=== PATIENT | female | born 1985 | race Caucasian/White ===

== ENCOUNTER 2020-03-05 10:13 | Emergency (ER) | payer OTHER ==
--- NOTE | 2020-03-05 10:35 | ED Physician Documentation ---
PD HPI UPPER EXT INJURY - Stated complaint Stated Complaint: LT FINGER INJ - Chief complaint Chief Complaint: Trauma Ext - History obtained from History obtained from: Patient - Additonal information Additional information: Right-handed woman was unbridling her horse 2 days ago and her left ring finger got caught and it snapped. She has persistent pain there. No other injuries. No possibility of . Ancillary complains about a weeks worth of underlying vaginal discharge. Initially more yeasty subsequently more like BV. She has had both in the past. Also has a new partner and is a little worried about STDs. She will self swab. Review of Systems Constitutional: reports: Reviewed and negative Eyes: reports: Reviewed and negative Ears: reports: Reviewed and negative Nose: reports: Reviewed and negative Throat: reports: Reviewed and negative PD PAST MEDICAL HISTORY - Present Medications Home Medications: Ambulatory Orders Medication Instructions Recorded Confirmed Hydrocodone/Acetaminophen 1 - 2 tab PO Q6H PRN #15 tablet 03/05/20 [Hydrocodone-Acetamin 5-325 mg] metroNIDAZOLE VAGINAL GEL 1 appful VG BID #10 tube 03/05/20 [Metrogel] metroNIDAZOLE [Flagyl] 500 mg PO BID #14 tablet 03/05/20 - Allergies Allergies/Adverse Reactions: Allergies Allergy/AdvReac Type Severity Reaction Status Date / Time azithromycin Allergy Emesis Verified 03/05/20 10:24 latex Allergy Rash Verified 03/05/20 10:24 lisinopril Allergy Edema Verified 03/05/20 10:24 Penicillins Allergy Unknown Verified 03/05/20 10:24 PD ED PE NORMAL - Vitals Vital signs reviewed: Yes - General General: Alert and oriented X 3, No acute distress - Extremities Extremities: Other (Deformity and swelling to the proximal phalanx and PIP of the left fourth finger with bruising. No distal neurovascular compromise.) - Neuro Neuro: Alert and oriented X 3, Normal speech Results - Vitals Vitals: Vital Signs - 24 hr 03/05/20 10:24 Temperature 36.9 C Heart Rate 95 Respiratory 16 Rate Blood Pressure 165/116 H O2 Saturation 99 Oxygen O2 Source Room air - Labs Labs: Microbiology 03/05/20 11:10 Wet Prep - Final Genital - Vaginal - Rads (name of study) L 4th finger XR Radiology: EMP read contemporaneously (Acute minimally displaced spiral fracture of the fourth proximal phalangeal shaft with soft tissue swelling.) Procedures - Splint (location) L4th finger Splint applied by: Physician Type of splint: Metal foam finger splint (and sara taped to #5) Other: Patient tolerated well, No complications, Neurovascular intact PD MEDICAL DECISION MAKING - ED course ED course: 34-year-old presents with a broken finger. It was splinted in a position of comfort. Advised on follow-up. She also had a complaint of vaginal discharge. Some concern for STDs. Wet mount shows clue cells consistent with bacterial vaginosis. Departure - Departure Disposition: 01 Home, Self Care Clinical Impression: Bacterial vaginosis Fracture of phalanx of left ring finger Qualifiers: Encounter type: initial encounter Fracture type: closed Phalanx: proximal Fracture alignment: nondisplaced Qualified Code(s): S62.645A - Nondisplaced fracture of proximal phalanx of left ring finger, initial encounter for closed fracture Condition: Good Record reviewed to determine appropriate education?: Yes Instructions: ED Fx Finger Closed, ED Vaginosis Bacterial Follow-Up: [facility] [Provider Group] - Within 1 week Prescriptions: metroNIDAZOLE [Flagyl] 500 mg PO BID #14 tablet Hydrocodone/Acetaminophen [Hydrocodone-Acetamin 5-325 mg] 1 - 2 tab PO Q6H PRN #15 tablet PRN Reason: Pain metroNIDAZOLE VAGINAL GEL [Metrogel] 1 appful VG BID #10 tube Comments: Follow-up with the orthopedic surgeons within the week, call today for an appointment. Return if worse. Keep the finger splinted for comfort and healing. Do not drink while taking Flagyl. Do not drink or drive while taking prescription pain medication. STD testing is pending, will call if positive in approximately 48 hours.
--- NOTE | 2020-03-05 11:05 | XRAY Report ---
PROCEDURE: Finger(s) RT INDICATIONS: L ring finger inj TECHNIQUE: AP hand, 2 views of the fourth finger(s) acquired. COMPARISON: None FINDINGS: Bones: Acute spiral fracture through fourth proximal phalangeal shaft is seen without significant dis placement or angulation at fracture site. After 1 mm diastases at fracture site is seen. No other fra cture or dislocation. No suspicious bony lesions. Soft tissues: No suspicious soft tissue calcifications. Soft tissue swelling surrounding fourth pro ximal phalangeal fracture site is seen. IMPRESSION: Acute minimally displaced spiral fracture involving fourth proximal phalangeal shaft with surrounding soft tissue swelling. Reviewed by: Anthony Oseguera MD on 03/05/2020 10:04 AM KARLA Approved by: Anthony Oseguera MD on 03/05/2020 10:04 AM KARLA Station ID: [id number]
[2020-03-05 11:58] VITALS: BP 153/101
[2020-03-05 14:07] LABS: CANDIDA GROUP DNA NEGATIVE (NEGATIVE); CANDIDA KRUSEI DNA NEGATIVE (NEGATIVE); TRICHOMONAS VAGINALIS DNA NEGATIVE (NEGATIVE)
[2020-03-05 22:07] LABS: TRICHOMONAS VAGINALIS DNA NEGATIVE (NEGATIVE)
--- NOTE | 2020-03-06 19:04 | XRAY Report ---
PROCEDURE: Finger(s) LT INDICATIONS: L ring finger inj TECHNIQUE: AP hand, 2 views of the fourth finger(s) acquired. COMPARISON: None FINDINGS: Bones: Acute spiral fracture through fourth proximal phalangeal shaft is seen without significant dis placement or angulation at fracture site. After 1 mm diastases at fracture site is seen. No other fra cture or dislocation. No suspicious bony lesions. Soft tissues: No suspicious soft tissue calcifications. Soft tissue swelling surrounding fourth proxi mal phalangeal fracture site is seen. IMPRESSION: Acute minimally displaced spiral fracture involving fourth proximal phalangeal shaft with surrounding soft tissue swelling. Reviewed by: Anthony Oseguera MD on 03/06/2020 6:02 PM KARLA Approved by: Anthony Oseguera MD on 03/06/2020 6:02 PM KARLA Station ID: [id number]
== END 2020-03-05 12:00 | disposition home or self-care (01) ==
LOC: ED 10:13
DX: S62.645A Nondisplaced fracture of proximal phalanx of left ring finger, initial encounter for closed fracture (principal); W23.0XXA Caught, crushed, jammed, or pinched between moving objects, initial encounter; Y93.K9 Activity, other involving animal care; N76.0 Acute vaginitis; B96.89 Other specified bacterial agents as the cause of diseases classified elsewhere
CPT/HCPCS: 73140; 87210; 87491; 87591; 87661; 87801; 99283; 99284

== ENCOUNTER 2020-05-21 07:00 | Outpatient (CLI) | payer OTHER ==
[2020-05-22 10:29] LABS: BILIRUBIN,URINE NEGATIVE (NEGATIVE); GLUCOSE, URINE (UA) NEGATIVE (NEGATIVE); KETONES,URINE (UA) NEGATIVE (NEGATIVE); LEUKOCYTE ESTERASE, URINE NEGATIVE (NEGATIVE); NITRITE,URINE NEGATIVE (NEGATIVE); OCCULT BLOOD,URINE NEGATIVE (NEGATIVE); PH,URINE 5.5 PH (5.0-7.5); PROTEIN,URINE NEGATIVE (NEGATIVE); UROBILINOGEN,URINE 0.2 (NORMAL) E.U./dL (NORMAL)
[2020-05-22 10:55] LABS: CLARITY,URINE CLOUDY (CLEAR); RBC,URINE TNTC /HPF (0-5)
[2020-05-22 10:56] LABS: AMORPHOUS SEDIMENT,UR Moderate /LPF; BACTERIA,URINE Few /HPF (None Seen); SQUAMOUS EPITHELIAL CELL,UR MOD Squamous (<= Few)
[2020-05-22 11:03] LABS: AMPHETAMINE SCREEN,URINE NEGATIVE (NEGATIVE); BENZODIAZEPINES SCREEN, URINE NEGATIVE (NEGATIVE); COCAINE SCREEN URINE NEGATIVE (NEGATIVE); METHADONE SCREEN, URINE NEGATIVE (NEGATIVE); METHAMPHETAMINES SCREEN, URINE NEGATIVE (NEGATIVE); MUDS CUTOFF CONCENTRATIONS CUTOFF CONC BELOW:; OPIATE SCREEN, URINE NEGATIVE (NEGATIVE); OXYCODONE SCREEN, URINE NEGATIVE (NEGATIVE); PROPOXYPHENE SCREEN, URINE NEGATIVE (NEGATIVE); TRICYCLIC ANTIDEPRESSANT,URINE NEGATIVE (NEGATIVE)
== END 2020-05-21 23:59 | disposition home or self-care (01) ==
LOC: LAB.R 07:00
PROVIDERS: ATTEND Obstetrics & Gynecology
DX: Z34.90 Encounter for supervision of normal pregnancy, unspecified, unspecified trimester (principal)
CPT/HCPCS: 80306; 81001; 87086

== ENCOUNTER 2020-06-05 08:00 | Outpatient (CLI) | payer OTHER | END 2020-06-05 23:59 | disposition home or self-care (01) | LOC: LAB 08:00 | PROVIDERS: ATTEND Obstetrics & Gynecology | DX: Z34.90 Encounter for supervision of normal pregnancy, unspecified, unspecified trimester (principal) | CPT/HCPCS: 36415; 84702; 86900; 86901 ==

== ENCOUNTER 2020-06-08 08:00 | Outpatient (CLI) | payer OTHER | END 2020-06-08 23:59 | disposition home or self-care (01) | LOC: LAB 08:00 | PROVIDERS: ATTEND Obstetrics & Gynecology | DX: Z34.90 Encounter for supervision of normal pregnancy, unspecified, unspecified trimester (principal) | CPT/HCPCS: 36415; 84702 ==

== ENCOUNTER 2020-06-13 20:33 | Outpatient (CLI) | payer OTHER | END 2020-06-13 20:34 | disposition home or self-care (01) | LOC: LAB 20:33 | PROVIDERS: ATTEND Obstetrics & Gynecology | DX: O03.9 Complete or unspecified spontaneous abortion without complication (principal) | CPT/HCPCS: 36415; 84702; 86900; 86901 ==

== ENCOUNTER 2020-06-18 08:00 | Outpatient (CLI) | payer OTHER ==
[2020-06-18 10:47] LABS: HGB - HEMOGLOBIN 13.7 g/dL (12.0-16.0); MEAN CORPUSCULAR HEMOGLOBIN 30.2 pg (27.0-31.0); MEAN CORPUSCULAR HGB CONC 32.8 g/dL (32.0-36.0); MEAN CORPUSCULAR VOLUME 92.1 fL (81.0-99.0); RED BLOOD COUNT 4.54 10^6/uL (4.20-5.40); RED CELL DISTRIBUTION WIDTH 11.3 % (12.0-15.0); WHITE BLOOD COUNT 5.1 x10^3/uL (4.8-10.8)
[2020-06-18 11:18] LABS: ALBUMIN 4.1 g/dL (3.2-5.5); ALBUMIN/GLOBULIN RATIO 1.4 (1.0-2.2); BILIRUBIN,TOTAL 0.5 mg/dL (0.2-1.0); CALCIUM 9.3 mg/dL (8.5-10.3); CREATININE 0.8 mg/dL (0.4-1.0); TOTAL PROTEIN 7.1 g/dL (6.7-8.2)
[2020-06-18 11:38] LABS: PROLACTIN 10.94 ng/mL
[2020-06-18 12:46] LABS: HEMOGLOBIN A1c% 5.1 % (4.27-6.07)
[2020-06-18 21:43] LABS: CANDIDA GROUP DNA NEGATIVE (NEGATIVE); CANDIDA KRUSEI DNA NEGATIVE (NEGATIVE); TRICHOMONAS VAGINALIS DNA NEGATIVE (NEGATIVE)
== END 2020-06-18 23:59 | disposition home or self-care (01) ==
LOC: LAB 08:00
PROVIDERS: ATTEND Obstetrics & Gynecology
DX: O03.9 Complete or unspecified spontaneous abortion without complication (principal); Z13.21 Encounter for screening for nutritional disorder; N96 Recurrent pregnancy loss; Z12.4 Encounter for screening for malignant neoplasm of cervix
CPT/HCPCS: 36415; 80053; 81599; 82306; 83036; 84146; 84443; 84702; 85027; 85613; 85730; 86146; 86900; 86901; 87661; 87801; 88230; 88262

== ENCOUNTER 2020-06-25 11:35 | Outpatient (CLI) | payer OTHER | END 2020-06-25 11:36 | disposition home or self-care (01) | LOC: LAB 11:35 | PROVIDERS: ATTEND Obstetrics & Gynecology | DX: O03.9 Complete or unspecified spontaneous abortion without complication (principal) | CPT/HCPCS: 36415; 84702 ==

== ENCOUNTER 2020-07-02 08:00 | Outpatient (CLI) | payer OTHER | END 2020-07-02 23:59 | disposition home or self-care (01) | LOC: LAB 08:00 | PROVIDERS: ATTEND Obstetrics & Gynecology | DX: O03.9 Complete or unspecified spontaneous abortion without complication (principal); N96 Recurrent pregnancy loss | CPT/HCPCS: 36415; 81599; 84702; 86147 ==

== ENCOUNTER 2020-07-02 08:51 | Outpatient (CLI) | payer OTHER ==
--- NOTE | 2020-07-02 11:27 | Ultrasound Report ---
PROCEDURE: Pelvic w/Transvaginal INDICATIONS: MISCARRIAGE TECHNIQUE: Real-time scanning was performed of the pelvic organs, with image documentation. Additional endovagi nal scanning was necessary due to incomplete visualization of the adnexal and endometrial structures by transabdominal scanning. COMPARISON: None. FINDINGS: No pathologic free abdominal or pelvic fluid. Uterus: Uterus is normal in size at 7.9 x 3.8 x 5.1 cm. Nonspecific heterogeneous echotexture of th e uterus diffusely. The endometrium measures 8-9 mm in combined thickness. There is mild endometrial vascularity, technically nonspecific without masslike appearance. Ovaries: Right ovary measures 5.0 x 1.4 x 2.6 cm. Left ovary measures 3.2 x 1.7 x 2.6 cm. Presumed i nvoluting physiologic follicles measuring 17 x 14 x 12 mm, and 14 x 8 x 11 mm on the right, and 12 x 12 x 18 mm on the left. IMPRESSION: No definite or specific evidence of retained products of conception by strict criteria. As clinically warranted, continued surveillance with ultrasound could be performed as clinically warranted to docu ment resolution/stability. Mild endometrial hyperemia and recommend clinical correlation to exclude e ndometritis. Reviewed by: Hang Hidalgo MD on 07/02/2020 11:25 AM PST Approved by: Hang Hidalgo MD on 07/02/2020 11:25 AM PST Station ID: [id number]
== END 2020-07-02 08:52 | disposition home or self-care (01) ==
LOC: DI 08:51
PROVIDERS: ATTEND Obstetrics & Gynecology
DX: O03.9 Complete or unspecified spontaneous abortion without complication (principal); N96 Recurrent pregnancy loss
CPT/HCPCS: 36415; 81599; 84702; 86146; 86147

== ENCOUNTER 2020-11-30 21:19 | Outpatient (CLI) | payer OTHER | END 2020-11-30 21:20 | disposition home or self-care (01) | LOC: LAB 21:19 | PROVIDERS: ATTEND Obstetrics & Gynecology | DX: Z32.01 Encounter for pregnancy test, result positive (principal); N96 Recurrent pregnancy loss | CPT/HCPCS: 36415; 84702 ==

== ENCOUNTER 2020-12-05 21:40 | Outpatient (CLI) | payer OTHER | END 2020-12-05 21:41 | disposition home or self-care (01) | LOC: LAB 21:40 | PROVIDERS: ATTEND Obstetrics & Gynecology | DX: N96 Recurrent pregnancy loss (principal); Z32.01 Encounter for pregnancy test, result positive | CPT/HCPCS: 36415; 84702 ==

== ENCOUNTER 2020-12-10 10:01 | Outpatient (CLI) | payer OTHER | END 2020-12-10 10:02 | disposition home or self-care (01) | LOC: LAB 10:01 | PROVIDERS: ATTEND Obstetrics & Gynecology | DX: N96 Recurrent pregnancy loss (principal); Z32.01 Encounter for pregnancy test, result positive | CPT/HCPCS: 36415; 84702 ==

== ENCOUNTER 2020-12-12 19:05 | Outpatient (CLI) | payer OTHER | END 2020-12-12 19:06 | disposition home or self-care (01) | LOC: LAB 19:05 | PROVIDERS: ATTEND Obstetrics & Gynecology | DX: N96 Recurrent pregnancy loss (principal); Z32.01 Encounter for pregnancy test, result positive | CPT/HCPCS: 36415; 84702 ==

== ENCOUNTER 2020-12-16 20:09 | Outpatient (CLI) | payer OTHER | END 2020-12-16 20:10 | disposition home or self-care (01) | LOC: LAB 20:09 | PROVIDERS: ATTEND Obstetrics & Gynecology | DX: N96 Recurrent pregnancy loss (principal); Z32.01 Encounter for pregnancy test, result positive | CPT/HCPCS: 36415; 84702 ==

== ENCOUNTER 2020-12-17 19:34 | Outpatient (CLI) | payer OTHER ==
--- NOTE | 2020-12-17 21:30 | Ultrasound Report ---
PROCEDURE: OB First Trimester w/TV INDICATIONS: POSITIVE TEST OUTSIDE/PRIOR DATING DATA: Last menstrual period (LMP): 10/31/2020. LMP-based estimated date of delivery (CARMELITA): 08/07/2021. First dating scan (date and location): 12/17/2020. [place] Estimated date of delivery (CARMELITA) from first dating scan: 08/11/2021. The below data below was generated using the ultrasound CARMELITA of 08/11/2021 TECHNIQUE: Real-time scanning was performed of the fetus and maternal pelvic organs, with image documentation. Endovaginal scanning was also performed to better visualize the fetus and maternal ovaries. COMPARISON: None FINDINGS: Embryo: A gestational sac with a yolk sac and pole is seen. Heart rate: Questionable pulse is 167. Measurement variability in dating: +/- 4 weeks by LMP, +/- 7 days by mean sac diameter (use before 6 weeks gestation if crown-rump length not able to be measured), +/- 5 days by crown-rump length (6-12 weeks gestation). Maternal organs: Ovaries demonstrate a right corpus luteal cyst.. IMPRESSION: 6 week 1 day intrauterine by crown-rump length. Heart rate was not definitivel y heard. Recommend repeat ultrasound in one week. Reviewed by: Nilesh Guerrero on 12/17/2020 9:28 PM PDT Approved by: Nilesh Guerrero on 12/17/2020 9:28 PM PDT Station ID: [id number]
== END 2020-12-17 19:35 | disposition home or self-care (01) ==
LOC: DI 19:34
PROVIDERS: ATTEND Obstetrics & Gynecology
DX: O34.81 Maternal care for other abnormalities of pelvic organs, first trimester (principal); N83.11 Corpus luteum cyst of right ovary; Z3A.01 Less than 8 weeks gestation of pregnancy

== ENCOUNTER 2020-12-19 20:48 | Outpatient (CLI) | payer OTHER | END 2020-12-19 20:49 | disposition home or self-care (01) | LOC: LAB 20:48 | PROVIDERS: ATTEND Obstetrics & Gynecology | DX: N96 Recurrent pregnancy loss (principal); Z32.01 Encounter for pregnancy test, result positive | CPT/HCPCS: 36415; 84702 ==

== ENCOUNTER 2020-12-23 11:53 | Outpatient (CLI) | payer OTHER | END 2020-12-23 11:54 | disposition home or self-care (01) | LOC: LAB 11:53 | PROVIDERS: ATTEND Obstetrics & Gynecology | DX: N96 Recurrent pregnancy loss (principal); Z32.01 Encounter for pregnancy test, result positive | CPT/HCPCS: 36415; 84702 ==

== ENCOUNTER 2020-12-27 20:18 | Outpatient (CLI) | payer OTHER ==
--- NOTE | 2020-12-28 07:58 | Ultrasound Report ---
PROCEDURE: OB Transvaginal INDICATIONS: OUTSIDE/PRIOR DATING DATA: Last menstrual period (LMP): 10/31/2020. LMP-based estimated date of delivery (CARMELITA): 08/07/2021. First dating scan (date and location): 12/17/2020. Estimated date of delivery (CARMELITA) from first dating scan: 08/11/2021. TECHNIQUE: Real-time scanning was performed of the fetus and maternal pelvic organs, with image documentation. Endovaginal scanning was also performed to better visualize the fetus and maternal ovaries. COMPARISON: OB ultrasound 12/17/2020 FINDINGS: Previous exam demonstrated an intrauterine with gestational age of 6 weeks 1 day. On curren t exam there is a complex focus of ill-defined echogenicity demonstrating areas of increased vascular ity in the endometrium. No free fluid. No heart tones. Cystic structure is again noted within t he right ovary suggestive of previous corpus luteal cyst. Measurement variability in dating: +/- 4 weeks by LMP, +/- 7 days by mean sac diameter (use before 6 weeks gestation if crown-rump length not able to be measured), +/- 5 days by crown-rump length (6-12 weeks gestation). IMPRESSION: 1. Nonvisualization of previous viable intrauterine . Complex focus of echogenicity with inc reased vascularity is noted within the endometrium highly suggestive of retained products of concepti on. Recommend correlation of beta hCG levels. Reviewed by: Janina Leach MD on 12/28/2020 7:57 AM PDT Approved by: Janina Leach MD on 12/28/2020 7:57 AM PDT Station ID: [id number]
== END 2020-12-27 20:19 | disposition home or self-care (01) ==
LOC: DI 20:18
PROVIDERS: ATTEND Obstetrics & Gynecology
DX: Z32.01 Encounter for pregnancy test, result positive (principal); D68.61 Antiphospholipid syndrome; N96 Recurrent pregnancy loss
CPT/HCPCS: 36415; 84702

== ENCOUNTER 2020-12-27 20:21 | Outpatient (CLI) | payer OTHER | END 2020-12-27 20:22 | disposition home or self-care (01) | LOC: LAB 20:21 | PROVIDERS: ATTEND Obstetrics & Gynecology | DX: N96 Recurrent pregnancy loss (principal); Z32.01 Encounter for pregnancy test, result positive | CPT/HCPCS: 36415; 84702 ==

== ENCOUNTER 2021-01-09 15:18 | Outpatient (CLI) | payer OTHER | END 2021-01-09 15:19 | disposition home or self-care (01) | LOC: LAB 15:18 | PROVIDERS: ATTEND Obstetrics & Gynecology | DX: N96 Recurrent pregnancy loss (principal); Z32.01 Encounter for pregnancy test, result positive | CPT/HCPCS: 36415; 84702 ==

== ENCOUNTER 2021-06-18 18:26 | Outpatient (CLI) | payer OTHER ==
[2021-06-18 21:08] LABS: BASOPHILS # (AUTO) 0.1 10^3/uL (0.0-0.1); BASOPHILS % (AUTO) 1.4 %; EOSINOPHILS # (AUTO) 0.3 10^3/uL (0.0-0.7); EOSINOPHILS % (AUTO) 4.5 %; HCT - HEMATOCRIT 42.4 % (37.0-47.0); HGB - HEMOGLOBIN 14.3 g/dL (12.0-16.0); LYMPHOCYTES # (AUTO) 2.3 10^3/uL (1.5-3.5); LYMPHOCYTES % (AUTO) 35.3 %; MEAN CORPUSCULAR HEMOGLOBIN 29.6 pg (27.0-31.0); MEAN CORPUSCULAR HGB CONC 33.7 g/dL (32.0-36.0); MEAN CORPUSCULAR VOLUME 87.8 fL (81.0-99.0); MEAN PLATELET VOLUME 12.9 fL (7.9-10.8); MONOCYTES # (AUTO) 0.3 10^3/uL (0.0-1.0); NEUTROPHILS # (AUTO) 3.6 10^3/uL (1.5-6.6); NEUTROPHILS % (AUTO) 53.6 %; PLT - PLATELET COUNT 191 10^3/uL (130-450); RED BLOOD COUNT 4.83 10^6/uL (4.20-5.40); RED CELL DISTRIBUTION WIDTH 12.2 % (12.0-15.0); WHITE BLOOD COUNT 6.6 x10^3/uL (4.8-10.8)
[2021-06-18 21:23] LABS: ESTIMATED AVERAGE GLUCOSE 103 mg/dL (70-100); HEMOGLOBIN A1c% 5.2 % (4.27-6.07)
[2021-06-18 21:41] LABS: THYROID STIMULATING HORMONE 2.66 uIU/mL (0.34-5.60)
== END 2021-06-18 18:27 | disposition home or self-care (01) ==
LOC: LAB.N 18:26
PROVIDERS: ATTEND Nurse Practitioner Family
DX: I10 Essential (primary) hypertension (principal); D68.61 Antiphospholipid syndrome; Z13.1 Encounter for screening for diabetes mellitus; Z13.29 Encounter for screening for other suspected endocrine disorder
CPT/HCPCS: 36415; 80053; 80061; 83036; 83721; 84443; 85025

== ENCOUNTER 2021-06-21 13:29 | Outpatient (CLI) | payer OTHER ==
[2021-06-21 14:09] LABS: ALBUMIN/GLOBULIN RATIO 1.3 (1.0-2.2); ALKALINE PHOSPHATASE 64 IU/L (42-121); ALT ALANINE AMINOTRANSFERASE 16 IU/L (10-60); AST ASPARTATE AMINOTRANSFERASE 20 IU/L (10-42); BILIRUBIN,TOTAL 0.7 mg/dL (0.2-1.0); BUN - BLOOD UREA NITROGEN 14 mg/dL (6-20); CARBON DIOXIDE - CO2 26 mmol/L (21-32); CHLORIDE 104 mmol/L (101-111); CHOL/HDL RATIO 2.6 (<4.4); CHOLESTEROL 216 mg/dL; CREATININE 0.8 mg/dL (0.4-1.0); GFR - MDRD 82 (>89); GLUCOSE 103 mg/dL (70-100); HDL CHOLESTEROL 83 mg/dL; LDL CHOLESTEROL,CALCULATED 118 mg/dL; LDL/HDL RATIO 1.4 (<4.4); POTASSIUM 3.7 mmol/L (3.5-5.0); SODIUM 139 mmol/L (135-145); TOTAL PROTEIN 7.1 g/dL (6.7-8.2); TRIGLYCERIDES 74 mg/dL; VLDL CHOLESTEROL 15 mg/dL
== END 2021-06-21 13:30 | disposition home or self-care (01) ==
LOC: LAB 13:29
PROVIDERS: ATTEND Nurse Practitioner Family
DX: I10 Essential (primary) hypertension (principal); D68.61 Antiphospholipid syndrome
CPT/HCPCS: 36415; 80053; 80061; 83721

== ENCOUNTER 2022-08-18 15:31 | Outpatient (CLI) | payer BC ==
[2022-08-18 16:43] VITALS: BP 126/74
--- NOTE | 2022-08-18 16:43 | SLEEP CARE CONSULTATION ---
Information from patient questionnaire entered by Ruslan New. I have reviewed and concur with the information entered by Ruslan New. This document represents the service I personally performed and the decisions made by me, Portia Dietz MD, [facility]. History of Present Illness Service Date and Time: 08/18/2022 1531 Reason for Visit: New patient Chief Complaint: reports: Unrefreshed sleep, Excessive daytime sleepiness, Fatigue, Frequent awakenings at night, Other (SLEEP WALKING ) Date of Onset: 6+MONTHS Usual bedtime: 9-10AM Time it takes to fall asleep: 5-10MIN Snores at night: No Observed to quit breathing while asleep: No Sleeps alone due to snoring: No Number of times waking at night: 3+ Reasons for waking at night: reports: Bathroom, Other (TO EAT FOOD DRINK MILK OR JUICE, FEET GET HOT) Toss, Turn, or Twitch while sleeping: Yes Recalls having dreams: Yes Usually gets out of bed at: 545AM Feels refreshed in the morning: No Morning headache: No Sleepy or fatigued during the day: Yes Ever fallen asleep while driving: No Takes day naps: Yes Dreams during day naps: Yes Prior sleep studies: No Additional HPI information: I have the pleasure of seeing Ms. Lyles today regarding the possibility of her having a sleep disorder. As you know, she is a 36-year-old lady who complains of sleep walking. She has had it for almost a decade but worse in the past 6 months. She can recall having it around the time of her divorce 7 years ago. She thinks it got worse 6 months ago because her significant other went on deployment. She also moved into a new house and changed job. Three weeks ago, he came back, and it has improved. During the past 6 months, she would sleepwalk almost every night. She frequently finds herself in the couch or in the kitchen drinking milk/juices. She has been outside the house twice. She has not sustained any injuries but one time accidentally turned on the stove and woke up to the fire alarm. She thinks the sleepwalking occurs mainly around 3 am. The patient tells me that she normally goes to bed around 9 - 10 pm, and it takes her approximately 5 - 10 minutes to fall asleep. She has not been told that she snores loudly or irregularly at night. She has never been observed to stop breathing in her sleep. She can recall waking up on the average of 3+ times during the night. Most of the time she wakes up because of having to use the bathroom and burning sensation in her feet. She has never awakened because of her own snoring, choking, or having to gasp for air. There is not a lot of tossing and turning in her sleep. Generally, she can recall having dreams, but they are not related to the sleepwalks. In the morning she usually gets up out of the bed around 5:45 a.m. not feeling refreshed nor rested. She usually does not have a morning headache. During the day she complains of feeling sleepy and fatigued. Her score on [place] Sleepiness Scale is 10 out of 24. She never has fallen asleep while driving nor has had any accident due to sleepiness. She usually takes naps during the day. Upon falling asleep during the day she reports having dreams. She reports having impaired concentration during the day. 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 Patient is and lives in [place]. Have you smoked in the past 12 months: No Years of smokin Quit date: 2019 Alcohol use: Yes Alcohol amount and frequency: 1-2 DRINKS 2-3 NIGHTS WEEK Caffeine use: Yes Caffeine amount and frequency: 1-2 CUPS COFFEE NEARLY DAILY Family History Family history of sleep disordered breathing: Yes Family Hx Sleep Apnea: Grandparent: Snoring, Sleep apnea - Untreated Allergies and Home Medications Known drug allergies: Yes (BETA BLOCKERS, PCN, LATEX) Drug allergies reviewed: Yes Home medication list reviewed: Yes Allergy and home medication list: Allergies azithromycin Allergy (Verified 08/15/22 15:58) Emesis latex Allergy (Verified 08/15/22 15:58) Rash lisinopril Allergy (Verified 08/15/22 15:58) Edema Penicillins Allergy (Verified 08/15/22 15:58) Unknown Review of Systems Weight gain over past 5 years: 5 Cardiovascular: denies: high blood pressure, palpitations, chest pain, irregular heart rate or pulse, leg or foot swelling, have to sleep sitting up, other Respiratory: denies: shortness of breath, wheeze, sputum production, chronic cough, other Gastrointestinal: denies: heartburn, difficulty swallowing, nausea, vomitting, diarrhea, abdominal pain, other Urinary: denies: incontinence, frequency, urgency, impotence, other Neurological: denies: headaches, seizure, head trauma, disorientation, speech dysfunction, gait or balance problems, fainting or unconsciousness, other Psychiatric: reports: anxiety Ear/Nose/Throat: reports: wisdom teeth removed Endocrine: reports: sluggishness, too hot or cold, excessive thirst Musculoskeletal: denies: joint pain, neck pain, back pain, joint swelling, muscle pain or cramping, mobility problems, other Immunologic: denies: sneezing, rash, itching, allergies to food or environment, other Physical Exam Vital signs obtained and entered by: RUSLAN Romero MA Blood Pressure: 126/74 (LEFT ARM) Cuff size: regular Heart Rate: 78 O2 Saturation: 98 Height: 5 ft 3.5 in Weight: 132 lb 6.4 oz Weight change since last visit: 132.4 Body Mass Index: 23.1 BMI Classification: Normal Neck circumference: 12.75 Mood/affect: normal HEENT: No craniofacial malformation Nostrils: patent to airflow Turbinates: normal Septum: midline Mouth and throat: narrow oropharynx Soft palate: long Hard palate: normal Uvula visualization: 25% Mallampati Class III Tongue: normal in size Tonsils: small Chin and jaw: normal size and position Neck: normal w/o lymphadenopathy or thyromegaly Heart: regular rate and rhythm Lungs: clear bilaterally Extremities: no edema or clubbing Neurologic: intact Impression and Plan IMPRESSION: 1. 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 The patient has several factors that could aggravate sleepwalking: stress, insufficient sleep, alcohol, and anxiety. The primary treatment is to avoid injury and accidents. I advised her to cover all sharp edges in the bedroom. She may want to lock her bedroom door with a combination lock to make it harder to open while asleep. Cognitive behavior therapy to overcome stress and/or anxiety could be beneficial. Antidepressants or benzodiazepine can limit episodes and promote sleep (the patient tried Valium in the past and did not like it). An in- laboratory polysomnography will performed to rule out other sleep disrupting conditions that could contribute to the sleepwalking. Plan: 1. Schedule an in-laboratory polysomnography 2. Safe proof her bedroom environment 3. Avoid alcohol, sedative and muscle relaxant around bedtime. 4. Allow 8 hours for sleeping 5. [employer] handout on Sleepwalking & Sleep Talking given to the patient. 6. Return for a follow up after the sleep study. Follow up with Sleep Care in: 1-2 months Plan: in-lab sleep study Visit Type: In Office Time Spent with Patient (minutes): 15 Provider Statement: I spent 100% of the Face to Face Visit with the patient with greater than 50% spent counseling the patient and coordination of care.
== END 2022-08-18 15:32 | disposition home or self-care (01) ==
LOC: SC 15:31
PROVIDERS: ATTEND Internal Medicine Pulmonary Disease
DX: G47.10 Hypersomnia, unspecified (principal); R44.8 Other symptoms and signs involving general sensations and perceptions; G47.8 Other sleep disorders; F51.3 Sleepwalking [somnambulism]; Z87.891 Personal history of nicotine dependence
CPT/HCPCS: 99202; 99212

== ENCOUNTER 2022-09-02 10:27 | Outpatient (CLI) | payer BC ==
[2022-09-02 11:39] LABS: THYROID STIMULATING HORMONE 2.17 uIU/mL (0.34-5.60)
[2022-09-02 11:45] LABS: PROLACTIN 8.37 ng/mL
[2022-09-02 12:07] LABS: FOLLICLE STIMULATING HORMONE 6.64 mIU/mL
[2022-09-02 14:41] LABS: ESTIMATED AVERAGE GLUCOSE 100 mg/dL (70-100); HEMOGLOBIN A1c% 5.1 % (4.27-6.07)
[2022-09-03 07:09] LABS: ESTRADIOL 45.5 pg/mL (.)
[2022-09-03 09:09] LABS: THYROID PEROXIDASE (TPO) AB <9 IU/mL (0-34)
[2022-09-04 00:08] LABS: BETA-2 GLYCOPROTEIN I IGG <9 (0-20); BETA-2 GLYCOPROTEIN I IGM 81 (0-32)
== END 2022-09-02 10:28 | disposition home or self-care (01) ==
LOC: LAB 10:27
PROVIDERS: ATTEND Obstetrics & Gynecology Reproductive Endocrinology
DX: Z31.49 Encounter for other procreative investigation and testing (principal); Z31.41 Encounter for fertility testing
CPT/HCPCS: 36415; 82397; 82670; 83001; 83036; 84146; 84443; 86146; 86376; 86900; 86901

== ENCOUNTER 2022-09-22 12:28 | Outpatient (CLI) | payer BC ==
--- NOTE | 2022-09-23 09:39 | Ultrasound Report ---
LIMITED ULTRASOUND OF LEFT BREAST: 09/22/2022 CLINICAL: Palpable left breast lump. Comparison is made to exams dated: 09/22/2022 mammogram - [facility], 07/15/2021 [facility], and 07/15/2021 mammogram - [facility]. Color flow and real-time ultrasound of the left breast 1 o'clock and 3-4 o'clock regions were perform ed. Trejo scale images of the real-time examination were reviewed. There is a benign 0.7 cm x 0.6 cm x 0.3 cm oval cyst in the left breast at 1 o'clock posterior depth 5 cm from the nipple. The cyst is decreased in size. Color flow imaging demonstrates that there is n o vascularity present. IMPRESSION: BENIGN There is no sonographic evidence of malignancy. The 0.7 cm oval cyst in the left breast is benign. A 5 year screening mammogram is recommended. Exam findings were conveyed to the patient. This exam was interpreted at Station ID: [id number]. Electronically Signed By: Odilon Arroyo M.D. slc/:09/22/2022 14:24:35 Ultrasound BI-RADS: 2 Benign BI-RADS CATEGORY: (2) - 2 Mammogram [id number] 5 year screening LATERALITY: (B)
--- NOTE | 2022-09-23 09:39 | Mammography Report ---
BILATERAL DIGITAL DIAGNOSTIC MAMMOGRAM 3D/2D: 09/22/2022 CLINICAL: Due for bilateral imaging. Palpable left breast lump. Comparison is made to exam dated: 07/15/2021 mammogram - [facility]. Both breasts are extremely dense, which lowers the sensitivity of mammography (category d />75% gland ular tissue). No significant masses, calcifications, or other findings are seen in either breast. IMPRESSION: INCOMPLETE: NEEDS ADDITIONAL IMAGING EVALUATION No mammographic evidence of malignancy. A targeted ultrasound is recommended and will immediately follow. Based on the Tyrer Cuzick model (a risk assessment model) the patients lifetime risk is 14.4% and he r 10 year risk is 1.1%. According to the ACR, ACS, and NCCN guidelines, an annual breast MRI exam marissa ng with mammogram is recommended if the patients lifetime risk is 20% or greater. This exam was interpreted at Station ID: [id number]. NOTE: For mammograms, a report in lay terms will be sent to the patient. Approximately 15% of breast malignancies will not be visualized mammographically. In the management of a palpable breast mass, a negative mammogram must not discourage biopsy of a clinically suspicious lesion. Electronically Signed By: Odilon Arroyo M.D. slc/:09/22/2022 14:20:45 ACR BI-RADS Category 0: Incomplete 3340F PARENCHYMAL PATTERN: (VD) - The breast(s) demonstrate(s) extremely dense parenchyma, limiting the sen sitivity of mammography. BI-RADS CATEGORY: (0) - 0 Ultrasound [id number] Immediate follow-up LATERALITY: (B)
== END 2022-09-22 12:29 | disposition home or self-care (01) ==
LOC: DI 12:28
PROVIDERS: ATTEND Internal Medicine
DX: N60.02 Solitary cyst of left breast (principal)

== ENCOUNTER 2022-10-07 20:33 | Outpatient (CLI) | payer BC | END 2022-10-07 20:34 | disposition home or self-care (01) | LOC: SC 20:33 | PROVIDERS: ATTEND Internal Medicine Pulmonary Disease | DX: G47.10 Hypersomnia, unspecified (principal); R44.8 Other symptoms and signs involving general sensations and perceptions; G47.8 Other sleep disorders; F51.3 Sleepwalking [somnambulism] | CPT/HCPCS: 95810 ==

== ENCOUNTER 2022-11-03 15:09 | Outpatient (CLI) | payer BC | END 2022-11-03 15:10 | disposition home or self-care (01) | LOC: LAB 15:09 | PROVIDERS: ATTEND Obstetrics & Gynecology Reproductive Endocrinology | DX: Z32.00 Encounter for pregnancy test, result unknown (principal) | CPT/HCPCS: 36415; 84702 ==

== ENCOUNTER 2022-11-06 12:47 | Outpatient (CLI) | payer BC | END 2022-11-06 12:48 | disposition home or self-care (01) | LOC: LAB 12:47 | PROVIDERS: ATTEND Obstetrics & Gynecology Reproductive Endocrinology | DX: Z13.29 Encounter for screening for other suspected endocrine disorder (principal) | CPT/HCPCS: 36415; 84443 ==

== ENCOUNTER 2022-11-14 14:27 | Outpatient (CLI) | payer BC ==
--- NOTE | 2022-11-14 17:01 | Ultrasound Report ---
PROCEDURE: OB Transvaginal INDICATIONS: SUPERVISION OF ELDERLY PRIMIGRAVIDA OUTSIDE/PRIOR DATING DATA: Last menstrual period (LMP): 09/28/2022. LMP-based estimated date of delivery (CARMELITA): 07/05/2023. First dating scan (date and location): 11/14/2022. Estimated date of delivery (CARMELITA) from first dating scan: 07/04/2023. TECHNIQUE: Real-time scanning was performed of the fetus and maternal pelvic organs, with image documentation. Endovaginal scanning was also performed to better visualize the fetus and maternal ovaries. COMPARISON: None. FINDINGS: Intrauterine gestational sac present. Embryo: Single live uterine gestation measures 2.0 cm for a gestational age of 6 weeks, 6 days Heart rate: 131 bpm. Other: No perigestational fluid collection. Measurement variability in dating: +/- 4 weeks by LMP, +/- 7 days by mean sac diameter (use before 6 weeks gestation if crown-rump length not able to be measured), +/- 5 days by crown-rump length (6-12 weeks gestation). Maternal organs: Ovaries appear within normal limits. There is a left corpus luteal cyst. IMPRESSION: Single live intrauterine gestation with a gestational age of 6 weeks 6 days by crown-rump length. Reviewed by: Mildred Reilly MD on 11/14/2022 5:00 PM PDT Approved by: Mildred Reilly MD on 11/14/2022 5:00 PM PDT Station ID: [id number]
== END 2022-11-14 14:28 | disposition home or self-care (01) ==
LOC: DI 14:27
PROVIDERS: ATTEND Obstetrics & Gynecology Reproductive Endocrinology
DX: O09.511 Supervision of elderly primigravida, first trimester (principal); Z3A.01 Less than 8 weeks gestation of pregnancy

== ENCOUNTER 2022-11-24 15:33 | Outpatient (CLI) | payer BC ==
--- NOTE | 2022-11-27 20:31 | SLEEP CARE CONSULTATION ---
Information from patient questionnaire entered by Ruslan New. I have reviewed and concur with the information entered by Ruslan New. This document represents the service I personally performed and the decisions made by me, Portia Dietz MD, [facility]. History of Present Illness Service Date and Time: 11/24/2022 1533 Initial Kennard Sleepiness Scale score: 10 Current Kennard Sleepiness Scale score: 14 (11/24/22) Additional HPI information: Ms. Lyles returned for follow up of the sleep study she had on 10/07/2022. The polysomnography showed that the patient had normal sleep efficiency. The sleep architecture was normal as well. Respiratory monitoring showed no significant sleep disordered breathing (AHI = 0.0) hypoxia (zeina oxygen saturation of 94%). The patient slept adequately in supine position (supine AHI = 0.0; non-supine = 0.00). No audible snore. There was no significant periodic leg movement of sleep. Cardiac rhythm was normal sinus rhythm without significant arrhythmia. No abnormal behavior (parasomnia) observed during the night. The patient was informed of these findings. I explained to her that the sleep study was normal. Sleep Study - Results Type of Sleep Study: Polysomnography (COMPLETED 10/07/22) Prior sleep studies: No Allergies and Home Medications Drug allergies reviewed: Yes Home medication list reviewed: Yes Allergy and home medication list: Allergies azithromycin Allergy (Verified 11/21/22 10:46) Emesis latex Allergy (Verified 11/21/22 10:46) Rash lisinopril Allergy (Verified 11/21/22 10:46) Edema Penicillins Allergy (Verified 11/21/22 10:46) Unknown Review of Systems Review of systems same as previous: Yes Physical Exam Vital signs obtained and entered by: RUSLAN Romero MA Blood Pressure: 112/74 (LEFT ARM) Cuff size: regular Heart Rate: 77 O2 Saturation: 99 Height: 5 ft 3.5 in Weight: 138 lb 6.4 oz Body Mass Index: 24.1 BMI Classification: Normal Impression and Plan IMPRESSION: 1. Sleep walking, aggravated by stress and sleep deprivation. 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 The main danger in her case is when she walks outside the bedroom. She has inadvertently turned on the stove. I advised her to put an alarm on her bedroom door so that it will wake her up if she tries to go out in her sleep. A combination lock may also work. 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 PLAN: 1. I recommend putting an alarm on her bedroom door to wake her up if she tries to get out in her sleep. She may also lock the door using a combination lock. 2. Avoid sleep deprivation and shift work. 3. Return for a follow up on as needed basis. Follow up with Sleep Care in: as needed Visit Type: In Office Time Spent with Patient (minutes): 15 Provider Statement: I spent 100% of the Face to Face Visit with the patient with greater than 50% spent counseling the patient and coordination of care.
[2022-11-27 20:34] VITALS: BP 112/74
== END 2022-11-24 15:34 | disposition home or self-care (01) ==
LOC: SC 15:33
PROVIDERS: ATTEND Internal Medicine Pulmonary Disease
DX: F51.3 Sleepwalking [somnambulism] (principal)
CPT/HCPCS: 99212

== ENCOUNTER 2022-11-25 14:20 | Outpatient (CLI) | payer BC ==
[2022-11-25 14:38] LABS: BASOPHILS % (AUTO) 0.6 %; EOSINOPHILS # (AUTO) 0.3 10^3/uL (0.0-0.7); HCT - HEMATOCRIT 39.5 % (37.0-47.0); HGB - HEMOGLOBIN 13.5 g/dL (12.0-16.0); LYMPHOCYTES # (AUTO) 1.8 10^3/uL (1.5-3.5); LYMPHOCYTES % (AUTO) 28.3 %; MEAN CORPUSCULAR HEMOGLOBIN 29.9 pg (27.0-31.0); MEAN CORPUSCULAR HGB CONC 34.2 g/dL (32.0-36.0); MEAN CORPUSCULAR VOLUME 87.4 fL (81.0-99.0); MEAN PLATELET VOLUME 12.3 fL (7.9-10.8); MONOCYTES # (AUTO) 0.4 10^3/uL (0.0-1.0); MONOCYTES % (AUTO) 6.8 %; NEUTROPHILS # (AUTO) 3.8 10^3/uL (1.5-6.6); NEUTROPHILS % (AUTO) 60.1 %; PLT - PLATELET COUNT 175 10^3/uL (130-450); RED BLOOD COUNT 4.52 10^6/uL (4.20-5.40); RED CELL DISTRIBUTION WIDTH 11.9 % (12.0-15.0); WHITE BLOOD COUNT 6.3 x10^3/uL (4.8-10.8)
[2022-11-25 14:40] LABS: BILIRUBIN,URINE NEGATIVE (NEGATIVE); GLUCOSE, URINE (UA) NEGATIVE (NEGATIVE); KETONES,URINE (UA) NEGATIVE (NEGATIVE); LEUKOCYTE ESTERASE, URINE NEGATIVE (NEGATIVE); NITRITE,URINE NEGATIVE (NEGATIVE); OCCULT BLOOD,URINE NEGATIVE (NEGATIVE); PH,URINE 5.5 PH (5.0-7.5); PROTEIN,URINE NEGATIVE (NEGATIVE); UROBILINOGEN,URINE 0.2 (NORMAL) E.U./dL (NORMAL)
[2022-11-25 14:49] LABS: BACTERIA,URINE None Seen /HPF (None Seen); CLARITY,URINE CLEAR (CLEAR); RBC,URINE None Seen /HPF (0-5); SQUAMOUS EPITHELIAL CELL,UR NONE SEEN (<= Few); WBC,URINE 0-3 /HPF (0-5)
[2022-11-26 03:10] LABS: HBsAG SCREEN Negative (Negative); HCV AB Non Reactive (Non Reactive); HIV SCREEN 4TH GENERATION Non Reactive (Non Reactive)
[2022-11-26 12:09] LABS: VARICELLA-ZOSTER AB IGG 2064 index (Immune >165)
[2022-11-27 08:10] LABS: RPR Non Reactive (Non Reactive)
== END 2022-11-25 14:21 | disposition home or self-care (01) ==
LOC: LAB 14:20
PROVIDERS: ATTEND Obstetrics & Gynecology
DX: O09.91 Supervision of high risk pregnancy, unspecified, first trimester (principal); Z36.89 Encounter for other specified antenatal screening
CPT/HCPCS: 36415; 81001; 85025; 86592; 86762; 86787; 86803; 86850; 86900; 86901; 87086; 87340; 87389

== ENCOUNTER 2022-12-09 08:00 | Outpatient (CLI) | payer BC ==
[2022-12-09 19:12] LABS: CHLAMYDIA TRACHOMATIS DNA NEGATIVE (NEGATIVE); NEISSERIA GONORRHOEAE DNA NEGATIVE (NEGATIVE); TRICHOMONAS VAGINALIS DNA NEGATIVE (NEGATIVE)
== END 2022-12-09 23:59 | disposition home or self-care (01) ==
LOC: LAB.WC 08:00
PROVIDERS: ATTEND Obstetrics & Gynecology
DX: Z11.3 Encounter for screening for infections with a predominantly sexual mode of transmission (principal)
CPT/HCPCS: 87491; 87591; 87661

== ENCOUNTER 2023-01-06 08:47 | Outpatient (CLI) | payer BC ==
[2023-01-06 09:23] LABS: ALBUMIN 3.8 g/dL (3.2-5.5); ALBUMIN/GLOBULIN RATIO 1.4 (1.0-2.2); BILIRUBIN,TOTAL 0.2 mg/dL (0.2-1.0); CALCIUM 9.3 mg/dL (8.5-10.3); CREATININE 0.6 mg/dL (0.6-1.3); POTASSIUM 3.7 mmol/L (3.5-4.5); TOTAL PROTEIN 6.5 g/dL (6.4-8.9)
[2023-01-06 09:38] LABS: THYROID STIMULATING HORMONE 1.17 uIU/mL (0.34-5.60)
== END 2023-01-06 08:48 | disposition home or self-care (01) ==
LOC: LAB 08:47
PROVIDERS: ATTEND Nurse Practitioner
DX: O16.1 Unspecified maternal hypertension, first trimester (principal)
CPT/HCPCS: 36415; 80053; 84443; 84550

== ENCOUNTER 2023-01-12 15:10 | Outpatient (CLI) | payer BC | END 2023-01-12 15:11 | disposition home or self-care (01) | LOC: LAB 15:10 | PROVIDERS: ATTEND Nurse Practitioner | DX: R42 Dizziness and giddiness (principal) | CPT/HCPCS: 36415; 82950 ==

== ENCOUNTER 2023-01-14 10:29 | Outpatient (CLI) | payer BC | END 2023-01-14 10:30 | disposition home or self-care (01) | LOC: RT 10:29 | PROVIDERS: ATTEND Nurse Practitioner | DX: R42 Dizziness and giddiness (principal) | CPT/HCPCS: 93005 ==

== ENCOUNTER 2023-01-20 08:00 | Outpatient (CLI) | payer BC ==
[2023-01-20 10:27] LABS: CREATININE 24 HOUR,URINE 1547 mg/24h (600-1800); CREATININE,URINE 50.3 mg/dL; TOTAL PROTEIN,URINE TIMED < 4 mg/dL; TOTAL VOLUME 24HRS,URINE 3075 mL
== END 2023-01-20 23:58 | disposition home or self-care (01) ==
LOC: LAB 08:00
PROVIDERS: ATTEND Nurse Practitioner
DX: O16.1 Unspecified maternal hypertension, first trimester (principal)
CPT/HCPCS: 82570; 84156

== ENCOUNTER 2023-02-16 17:09 | Outpatient (CLI) | payer BC ==
--- NOTE | 2023-02-17 11:31 | Ultrasound Report ---
PROCEDURE: OB Detailed Eval INDICATIONS: SUPERVISION OF HIGH RISK OUTSIDE/PRIOR DATING DATA: Last menstrual period (LMP): 09/28/2022. LMP-based estimated date of delivery (CARMELITA): 07/05/2023. First dating scan (date and location): 11/14/2022. Estimated date of delivery (CARMELITA) from first dating scan: 07/04/2023. The below data below was generated using the clinical CARMELITA of 07/05/2023 (revised) TECHNIQUE: Real-time scanning was performed of the fetus, with image documentation and biometric measurements. COMPARISON: OB ultrasound 11/14/2022. FINDINGS: General: A single living intrauterine gestation is present. Presentation: Variable Placenta: Placental position is posterior, without previa. Amniotic fluid index: 14.4 cm, within normal limits for gestational age. Largest pocket 4.4 cm. heart rate: 150 beats per minute. Maternal cervical canal: 3.1 cm long; normal length is 2.5 cm or more. biometrics: Biparietal diameter: 4.86 cm, 20 weeks 5 days Head circumference: 10.66 cm, 21 weeks 0 days Abdominal circumference: 16.55 cm, 21 weeks 4 days Femur length: 3.24 cm, 20 weeks 1 day Estimated gestational age from initial scan: 20 weeks 1 day Composite gestational age from present scan: 20 weeks 6 days Estimated weight and percentile: 386 g, 86th percentile. Measurement variability in biometric dating: +/- 10 days from 12-20 weeks gestation, +/- 2 weeks from 20-30 weeks gestation, +/- 3 weeks at 30 weeks gestation or later. Anatomic survey: Neuro: Ventricles are normal at less than 10 mm. Cisterna magna is normal at 3-11 mm. Cerebellum i s normal in size and morphology. Nuchal skin fold: Normal at less than 6 mm between 14 and 20 weeks gestational age. Face: Nose and lips, facial profile are normal. Spine: No evidence for spina bifida. Heart: 4-chambered heart is present, with normal ventricular outflow tracts. Intracardiac echogenic focus in the left ventricle. Diaphragm: Diaphragm is intact. Stomach: Left-sided stomach is present. Kidneys: No hydronephrosis. Normal is less than 5 mm in 2nd trimester, less than 7 mm in 3rd trimester. Cord: 3 vessel cord has orthotopic insertion. Bladder: Normal in size. Extremities: All 4 extremities are visualized. Maternal ovaries are unremarkable. IMPRESSION: 1. Rob living intrauterine at 20 weeks 6 days based on today's ultrasound. This is co ncordant with the first trimester ultrasound. Fetus is in the 86th percentile for weight. 2. Normal placenta and amniotic fluid. 3. Intracardiac echogenic focus. In the absence of additional findings this is likely an inconsequent ial finding. This can be seen associated with aneuploidy. Otherwise normal anatomic survey. Rec [facility] clinical correlation. Reviewed by: Odilon Arroyo MD on 02/17/2023 11:30 AM PDT Approved by: Odilon Arroyo MD on 02/17/2023 11:30 AM PDT Station ID: [id number]
== END 2023-02-16 17:10 | disposition home or self-care (01) ==
LOC: DI 17:09
PROVIDERS: ATTEND Nurse Practitioner
DX: O09.92 Supervision of high risk pregnancy, unspecified, second trimester (principal); Z36.8A Encounter for antenatal screening for other genetic defects; Z36.89 Encounter for other specified antenatal screening; Z3A.20 20 weeks gestation of pregnancy

== ENCOUNTER 2023-04-03 15:26 | Outpatient (CLI) | payer BC ==
[2023-04-03 17:31] LABS: HCT - HEMATOCRIT 36.5 % (37.0-47.0); MEAN CORPUSCULAR HEMOGLOBIN 30.2 pg (27.0-31.0); MEAN CORPUSCULAR HGB CONC 32.9 g/dL (32.0-36.0); MEAN CORPUSCULAR VOLUME 91.7 fL (81.0-99.0); MEAN PLATELET VOLUME 12.4 fL (7.9-10.8); RED BLOOD COUNT 3.98 10^6/uL (4.20-5.40); RED CELL DISTRIBUTION WIDTH 13.3 % (12.0-15.0); WHITE BLOOD COUNT 8.4 x10^3/uL (4.8-10.8)
== END 2023-04-03 15:27 | disposition home or self-care (01) ==
LOC: LAB 15:26
PROVIDERS: ATTEND Obstetrics & Gynecology
DX: O09.92 Supervision of high risk pregnancy, unspecified, second trimester (principal)
CPT/HCPCS: 36415; 82950; 85027

== ENCOUNTER 2023-04-14 11:29 | Outpatient (CLI) | payer BC ==
[2023-04-14 11:44] LABS: HCT - HEMATOCRIT 39.2 % (37.0-47.0); HGB - HEMOGLOBIN 12.9 g/dL (12.0-16.0); MEAN CORPUSCULAR HEMOGLOBIN 29.7 pg (27.0-31.0); MEAN CORPUSCULAR HGB CONC 32.9 g/dL (32.0-36.0); MEAN CORPUSCULAR VOLUME 90.3 fL (81.0-99.0); MEAN PLATELET VOLUME 11.9 fL (7.9-10.8); RED BLOOD COUNT 4.34 10^6/uL (4.20-5.40); RED CELL DISTRIBUTION WIDTH 13.2 % (12.0-15.0); WHITE BLOOD COUNT 8.3 x10^3/uL (4.8-10.8)
[2023-04-14 12:15] LABS: ALBUMIN 3.8 g/dL (3.2-5.5); ALBUMIN/GLOBULIN RATIO 1.2 (1.0-2.2); BILIRUBIN,TOTAL 0.3 mg/dL (0.2-1.0); CALCIUM 9.4 mg/dL (8.5-10.3); CREATININE 0.6 mg/dL (0.6-1.3); POTASSIUM 3.7 mmol/L (3.5-4.5); TOTAL PROTEIN 6.9 g/dL (6.4-8.9); URIC ACID 4.9 mg/dL (2.3-6.6)
[2023-04-14 12:55] LABS: CREATININE,URINE 115.1 mg/dL; PROTEIN/CREATININE RATIO,URINE 0.1 (<=0.2)
== END 2023-04-14 11:30 | disposition home or self-care (01) ==
LOC: LAB 11:29
PROVIDERS: ATTEND Obstetrics & Gynecology
DX: O16.9 Unspecified maternal hypertension, unspecified trimester (principal)
CPT/HCPCS: 36415; 80053; 82570; 84156; 84550; 85027

== ENCOUNTER 2023-04-27 16:29 | Outpatient (CLI) | payer BC ==
[2023-04-27 16:43] LABS: HCT - HEMATOCRIT 39.1 % (37.0-47.0); HGB - HEMOGLOBIN 13.1 g/dL (12.0-16.0); MEAN CORPUSCULAR HGB CONC 33.5 g/dL (32.0-36.0); MEAN CORPUSCULAR VOLUME 89.5 fL (81.0-99.0); MEAN PLATELET VOLUME 12.2 fL (7.9-10.8); RED BLOOD COUNT 4.37 10^6/uL (4.20-5.40); RED CELL DISTRIBUTION WIDTH 13.1 % (12.0-15.0); WHITE BLOOD COUNT 9.9 x10^3/uL (4.8-10.8)
[2023-04-27 16:54] LABS: CREATININE,URINE 109.1 mg/dL; PROTEIN/CREATININE RATIO,URINE 0.1 (<=0.2)
[2023-04-27 17:00] LABS: ALBUMIN 3.8 g/dL (3.2-5.5); ALBUMIN/GLOBULIN RATIO 1.1 (1.0-2.2); BILIRUBIN,TOTAL 0.2 mg/dL (0.2-1.0); CALCIUM 9.5 mg/dL (8.5-10.3); CREATININE 0.8 mg/dL (0.6-1.3); POTASSIUM 3.8 mmol/L (3.5-4.5); TOTAL PROTEIN 7.3 g/dL (6.4-8.9)
== END 2023-04-27 16:30 | disposition home or self-care (01) ==
LOC: LAB 16:29
PROVIDERS: ATTEND Obstetrics & Gynecology
DX: O09.93 Supervision of high risk pregnancy, unspecified, third trimester (principal)
CPT/HCPCS: 36415; 80053; 82570; 84156; 85027

== ENCOUNTER 2023-05-12 15:13 | Outpatient (CLI) | payer BC ==
[2023-05-12 15:25] VITALS: BP 154/95; O2SAT 99
--- NOTE | 2023-05-12 16:01 | PROCEDURE REPORT ---
- HPI Current EDU 07/05/23 Gestation 32 Weeks and 2 Days 7 Para 0 Vital Signs Temperature 98.1 F 05/12/23 15:23 Heart Rate 91 05/12/23 15:23 Respiratory Rate 18 05/12/23 15:23 Blood Pressure 154/95 H 05/12/23 15:23 O2 Saturation 99 05/12/23 15:23 Temperature 98.1 F 05/12/23 15:25 Heart Rate 91 05/12/23 15:23 Respiratory Rate 18 05/12/23 15:23 Blood Pressure 154/95 H 05/12/23 15:23 O2 Saturation 99 05/12/23 15:23 If not protocol: Oxygen Flow, liters/minute - NST Procedure NST Procedure Start Date 05/12/23 Start Time 15:20 Stop Time 15:58 Vibroacoustic Stimulation Used No - Results and Plan Plan: Patient is a 37-year-old nulliparous female at 32 weeks 2 days gestation here for scheduled NST. NST Performed 05/12/2023 NST Read 05/12/2023 FHT: 130 bpm baseline, moderate variability, accelerations present, no decelerations. Reactive NST [place]: Quiescent Diagnosis Chronic hypertension 32 weeks gestation Continue with scheduled NSTs.
== END 2023-05-12 16:07 | disposition home or self-care (01) ==
LOC: WFO 15:13 → FBP 15:14 → WFO 16:07
PROVIDERS: ATTEND Obstetrics & Gynecology
DX: O16.9 Unspecified maternal hypertension, unspecified trimester (principal); Z3A.32 32 weeks gestation of pregnancy
CPT/HCPCS: 59025

== ENCOUNTER 2023-05-13 15:25 | Outpatient (CLI) | payer BC ==
--- NOTE | 2023-05-14 13:26 | Ultrasound Report ---
PROCEDURE: OB Biophysical Profile INDICATIONS: HYPERTENSION OUTSIDE/PRIOR DATING DATA: Last menstrual period (LMP): 09/28/2022. LMP-based estimated date of delivery (CARMELITA): 07/05/2023. First dating scan (date and location): 11/14/2022. Estimated date of delivery (CARMELITA) from first dating scan: 07/04/2023. The below data below was generated using the working CARMELITA of 07/05/2023 TECHNIQUE: Real-time scanning was performed of the fetus, with image documentation and biometric gonzalez surements. Biophysical profile was also obtained. Endovaginal scanning: Not performed COMPARISON: Multiple prior studies, most recent 02/16/2023 FINDINGS: General: A single living intrauterine gestation is present. Presentation: Cephalic Placenta: Placental position is posterior, without previa. Amniotic fluid index: 12.9 cm, largest pocket is 4.7 cm, normal for gestational age. heart rate: 135 beats per minute. Maternal cervical canal: Closed and 4.2 cm long; normal length is 2.5 cm or more. Estimated gestational age from working CARMELITA 32 weeks 3 days Biophysical profile: Tone: 2 points. Movement: 2 points. Respiration: 2 points. Largest pocket of fluid: 2 points. Umbilical artery Doppler: Not evaluated IMPRESSION: 1. Single living intrauterine in cephalic presentation. 2. Normal biophysical profile score, 8 out of 8. 3. Normal amniotic fluid volume. Reviewed by: Roselyn Fenton MD on 05/14/2023 1:24 PM PST Approved by: Roselyn Fenton MD on 05/14/2023 1:24 PM PST Station ID: [id number]
== END 2023-05-13 15:26 | disposition home or self-care (01) ==
LOC: DI 15:25
PROVIDERS: ATTEND Obstetrics & Gynecology
DX: O16.3 Unspecified maternal hypertension, third trimester (principal); Z3A.32 32 weeks gestation of pregnancy

== ENCOUNTER 2023-05-21 15:16 | Outpatient (CLI) | payer BC ==
[2023-05-21 15:53] VITALS: BP 144/86
--- NOTE | 2023-05-21 16:16 | PROCEDURE REPORT ---
- HPI Diagnosis/Indication for NST: Pre- Hypertension Vital Signs Temperature 98.2 F 05/21/23 15:36 Heart Rate 90 05/21/23 15:36 Respiratory Rate 16 05/21/23 15:36 Blood Pressure 144/86 H 05/21/23 15:36 Temperature 98.2 F 05/21/23 15:36 Heart Rate 90 05/21/23 15:36 Respiratory Rate 16 05/21/23 15:36 Blood Pressure 144/86 H 05/21/23 15:36 O2 Saturation If not protocol: Oxygen Flow, liters/minute - NST Procedure NST Procedure Start Date 05/21/23 Start Time 15:20 Stop Time 16:05 Vibroacoustic Stimulation Used No Patient States Movement Yes - Results and Plan Plan: Patient is a 37-year-old -0-6-0 at 33 weeks 4 days gestation here for scheduled NST. NST Performed 05/21/2023 NST Read 05/21/2023 FHT: 130 bpm baseline, moderate variability, accelerations present, no decelerations. Reactive NST [place]: Quiescent Diagnosis 33 weeks gestation Chronic hypertension Continue with scheduled NST.
== END 2023-05-21 16:15 | disposition home or self-care (01) ==
LOC: WFO 15:16 → FBP 15:34 → WFO 16:15
PROVIDERS: ATTEND Obstetrics & Gynecology
DX: O10.913 Unspecified pre-existing hypertension complicating pregnancy, third trimester (principal); Z3A.33 33 weeks gestation of pregnancy
CPT/HCPCS: 59025

== ENCOUNTER 2023-05-21 16:17 | Outpatient (CLI) | payer BC ==
--- NOTE | 2023-05-22 14:38 | Ultrasound Report ---
PROCEDURE: OB Biophysical Profile INDICATIONS: HYPERTENSION OUTSIDE/PRIOR DATING DATA: Last menstrual period (LMP): 09/28/2022. LMP-based estimated date of delivery (CARMELITA): 07/05/2023. First dating scan (date and location): 11/14/2022. Estimated date of delivery (CARMELITA) from first dating scan: 07/05/2023. The below data below was generated using the ultrasound/clinical CARMELITA of 07/05/2023 TECHNIQUE: Real-time scanning was performed of the fetus, with image documentation and biometric gonzalez surements. Biophysical profile was also obtained. COMPARISON: OB ultrasound 05/13/2023 FINDINGS: General: A single living intrauterine gestation is present. Presentation: Vertex Placenta: Placental position is posterior, without previa. Amniotic fluid index: 10.6 cm, within normal limits for gestational age. heart rate: 140 beats per minute. Maternal cervical canal: Not visualized biometrics: Biparietal diameter: 8.3 cm 33 weeks 1 day, 34th percentile Head circumference: 31.2 cm 34 weeks 6 days 46th percentile Abdominal circumference: 28.2 cm 32 weeks 2 days 17th percentile Femur length: 6.1 cm 31 weeks 5 days 5th percentile Estimated gestational age from initial scan: 33 weeks 4 days Composite gestational age from present scan: 33 weeks 0 days Estimated weight and percentile: 1972 g 14th percentile Measurement variability in biometric dating: +/- 10 days from 12-20 weeks gestation, +/- 2 weeks from 20-30 weeks gestation, +/- 3 weeks at 30 weeks gestation or later. Biophysical profile: Tone: 2 points. Movement: 2 points. Respiration: 2 points. Largest pocket of fluid: 2 points. Incidental note of a nuchal cord. IMPRESSION: Single live intrauterine with gestational age of 33 weeks 0 days. Femur length is noted at the 5th percentile. weight is at the 14th percentile. Incidental note of a nuchal cord. Reviewed by: Janina Leach MD on 05/22/2023 2:37 PM PST Approved by: Janina Leach MD on 05/22/2023 2:37 PM PST Station ID: [id number]
--- NOTE | 2023-05-22 14:44 | Ultrasound Report ---
PROCEDURE: OB Follow up INDICATIONS: HYPERTENSION OUTSIDE/PRIOR DATING DATA: Last menstrual period (LMP): 09/28/2022. LMP-based estimated date of delivery (CARMELITA): 07/05/2023. First dating scan (date and location): 11/14/2022. Estimated date of delivery (CARMELITA) from first dating scan: 07/05/2023. The below data below was generated using the ultrasound/clinical CARMELITA of 07/05/2023 TECHNIQUE: Real-time scanning was performed of the fetus, with image documentation and biometric gonzalez surements. Biophysical profile was also obtained. COMPARISON: OB ultrasound 05/13/2023 FINDINGS: General: A single living intrauterine gestation is present. Presentation: Vertex Placenta: Placental position is posterior, without previa. Amniotic fluid index: 10.6 cm, within normal limits for gestational age. heart rate: 140 beats per minute. Maternal cervical canal: Not visualized biometrics: Biparietal diameter: 8.3 cm 33 weeks 1 day, 34th percentile Head circumference: 31.2 cm 34 weeks 6 days 46th percentile Abdominal circumference: 28.2 cm 32 weeks 2 days 17th percentile Femur length: 6.1 cm 31 weeks 5 days 5th percentile Estimated gestational age from initial scan: 33 weeks 4 days Composite gestational age from present scan: 33 weeks 0 days Estimated weight and percentile: 1972 g 14th percentile Measurement variability in biometric dating: +/- 10 days from 12-20 weeks gestation, +/- 2 weeks from 20-30 weeks gestation, +/- 3 weeks at 30 weeks gestation or later. Biophysical profile: Tone: 2 points. Movement: 2 points. Respiration: 2 points. Largest pocket of fluid: 2 points. Incidental note of a nuchal cord. IMPRESSION: Single live intrauterine with gestational age of 33 weeks 0 days. Femur length is noted at the 5th percentile. weight is at the 14th percentile. Incidental note of a nuchal cord. BPP 8 out of 8 Reviewed by: Janina Leach MD on 05/22/2023 2:43 PM PST Approved by: Janina Leach MD on 05/22/2023 2:43 PM PST Station ID: [id number]
== END 2023-05-21 16:18 | disposition home or self-care (01) ==
LOC: DI 16:17
PROVIDERS: ATTEND Obstetrics & Gynecology
DX: O16.3 Unspecified maternal hypertension, third trimester (principal); Z3A.33 33 weeks gestation of pregnancy

== ENCOUNTER 2023-05-26 15:14 | Outpatient (CLI) | payer BC ==
[2023-05-26 15:39] VITALS: BP 141/85
--- NOTE | 2023-05-26 16:29 | PROCEDURE REPORT ---
- HPI Current EDU 07/05/23 Gestation 34 Weeks and 2 Days 7 Para 0 Vital Signs Temperature 98.5 F 05/26/23 15:26 Heart Rate 77 05/26/23 15:26 Respiratory Rate 18 05/26/23 15:26 Blood Pressure 141/85 H 05/26/23 15:26 Temperature 98.5 F 05/26/23 15:36 Heart Rate 84 05/26/23 15:36 Respiratory Rate 18 05/26/23 15:36 Blood Pressure 141/85 H 05/26/23 15:36 O2 Saturation If not protocol: Oxygen Flow, liters/minute - NST Procedure NST Procedure Start Date 05/26/23 Start Time 15:20 Stop Time 16:00 Patient States Movement Yes - Results and Plan Plan: Patient is a 37-year-old -0-6-0 at 34 weeks 2 days gestation here for scheduled NST. NST Performed 05/26/2023 NST Read 05/26/2023 FHT: 130 bpm baseline, moderate variability, accelerations present, no decel erations. Reactive NST. [place]: Quiescent Diagnosis 34 weeks gestation Chronic hypertension Had an acceleration followed by dip below baseline, although normal appearing, will follow-up with BPP that is coming subsequent BPP. Continue with scheduled NST.
== END 2023-05-26 16:20 | disposition home or self-care (01) ==
LOC: WFO 15:14 → FBP 15:16 → WFO 16:20
PROVIDERS: ATTEND Obstetrics & Gynecology
DX: O13.3 Gestational [pregnancy-induced] hypertension without significant proteinuria, third trimester (principal); Z3A.34 34 weeks gestation of pregnancy
CPT/HCPCS: 59025

== ENCOUNTER 2023-05-26 16:23 | Outpatient (CLI) | payer BC ==
--- NOTE | 2023-05-27 14:35 | Ultrasound Report ---
PROCEDURE: OB Biophysical Profile INDICATIONS: HYPERTENSION OUTSIDE/PRIOR DATING DATA: Last menstrual period (LMP): 09/28/2022. LMP-based estimated date of delivery (CARMELITA): 07/05/2023. First dating scan (date and location): 11/14/2022. Estimated date of delivery (CARMELITA) from first dating scan: 07/05/2023. The below data below was generated using the clinical CARMELITA of 07/05/2023 TECHNIQUE: Real-time scanning was performed of the fetus, with image documentation and biometric gonzalez surements. Biophysical profile was also obtained. Endovaginal scanning: Not performed COMPARISON: Ultrasound 05/21/2023 FINDINGS: General: A single living intrauterine gestation is present. Presentation: Vertex Placenta: Placental position is posterior, without previa. Amniotic fluid index: 11.0 cm, normal for gestational age. heart rate: 127 beats per minute. Maternal cervical canal: Not evaluated Biophysical profile: Tone: 2 points. Movement: 2 points. Respiration: 2 points. Largest pocket of fluid: 2 points. Umbilical artery Doppler: Not performed Persistent nuchal cord is noted. IMPRESSION: 1.Single live intrauterine consistent with 34 weeks and 2 days. 2.Normal biophysical profile. 3.Persistent nuchal cord is noted. Reviewed by: Harley Reyna MD on 05/27/2023 2:33 PM PST Approved by: Harley Reyna MD on 05/27/2023 2:33 PM PST Station ID: [id number]
== END 2023-05-26 16:24 | disposition home or self-care (01) ==
LOC: DI 16:23
PROVIDERS: ATTEND Obstetrics & Gynecology
DX: O10.913 Unspecified pre-existing hypertension complicating pregnancy, third trimester (principal); Z3A.34 34 weeks gestation of pregnancy

== ENCOUNTER 2023-06-02 15:09 | Outpatient (CLI) | payer BC ==
[2023-06-02 15:54] LABS: HGB - HEMOGLOBIN 12.6 g/dL (12.0-16.0); MEAN CORPUSCULAR HEMOGLOBIN 30.4 pg (27.0-31.0); MEAN CORPUSCULAR HGB CONC 33.2 g/dL (32.0-36.0); MEAN CORPUSCULAR VOLUME 91.8 fL (81.0-99.0); MEAN PLATELET VOLUME 13.4 fL (7.9-10.8); RED BLOOD COUNT 4.14 10^6/uL (4.20-5.40); RED CELL DISTRIBUTION WIDTH 13.7 % (12.0-15.0); WHITE BLOOD COUNT 8.9 x10^3/uL (4.8-10.8)
[2023-06-02 16:17] LABS: ALBUMIN 3.5 g/dL (3.2-5.5); ALBUMIN/GLOBULIN RATIO 1.1 (1.0-2.2); BILIRUBIN,TOTAL 0.2 mg/dL (0.2-1.0); CREATININE 0.8 mg/dL (0.6-1.3); POTASSIUM 3.8 mmol/L (3.5-4.5); TOTAL PROTEIN 6.6 g/dL (6.4-8.9); URIC ACID 6.8 mg/dL (2.3-6.6)
--- NOTE | 2023-06-02 17:00 | HISTORY & PHYSICAL EXAMINATION ---
History and Physical - History and Physical A/P: 37 yo with iup at 35w2d here for routine NST. Headache today 7/10 in severity, nausea last 3-4 days. with this she meets criteria for severe preeclampsia. Discussed wtih Dr. Myrick at and transfer arranged. Will start magnesium sulfate for seizure prophylaxis 4/2 gm. labs normal. FHT reactive. BPs elevated 157/89, 138/93, 144/89. will give 50 mg atenolol now as directed by Dr. Myrick. Transfer by [facility] being arranged. CC: here for NST HPI: pateint with very complicated . 1. 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 on Lovenox daily 40 mg last dose 5:30 am, and ASA 81 mg. 2. Hypertension since beginning of . first visit bp 150/90. started on nifedipine 30 mg daily at that time. increased to 30 mg bid at 26 weeks and then 60 mg am and 30 mg pm at 28 weeks. MFM consult ordered. since then atenolol and lasix have been added by [facility]. Significant swelliing. labs normal. Today she complains of headache 7/10 which is new for her. nausea for about 4 days. no vomiting. no visual changes. She has been very swollen for a few weeks and wears compression socks when she is at work. They are very tight on her today. Medical hx. as above. 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 sugical hx: breast lumpectomy 2012. history: 5 miscarriages, 1 termination. and then current, very desired . 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 partner is Odilon. he has other children. Family history: mom 45 yo with alcohol and drug issues. father with HTN. paternal uncles HTN. PGM with [facility] age 36, CABG, HTN, DM, Tobacco use. PE: FHT reactive. no concerns. BP 144.89, pulse 85 cheeks flushed Abdomen soft, not tender. gravid, bruised from her injections. legs with tense edema up into her thighs. compression socks are very tight. labs: Attached.
[2023-06-02] MEDS ORDERED: LACTATED RINGERS 1,000 ML ONE (17:18)
[2023-06-02] MEDS: MAGNESIUM SULFATE 4 GRAM 4 GM/50 ML BAG IV ONE (17:56)
[2023-06-02] MEDS: atenoloL 25 MG TABLET PO STA (18:02)
[2023-06-02] MEDS: LACTATED RINGERS 1,000 ML IV SCH (18:07)
[2023-06-02] MEDS: MAGNESIUM SULFATE IN WATER 20 GM/500 ML IV.SOLN IV SCH (18:24)
[2023-06-02 18:35] LABS: CREATININE,URINE 44.9 mg/dL; PROTEIN/CREATININE RATIO,URINE 0.2 (<=0.2)
[2023-06-02 19:58] VITALS: BP 150/86
== END 2023-06-02 18:58 | disposition short-term general hospital (02) ==
LOC: WFO 15:09 → FBP 15:17 → WFO 18:58
PROVIDERS: ATTEND Obstetrics & Gynecology
DX: O14.13 Severe pre-eclampsia, third trimester (principal); O99.113 Other diseases of the blood and blood-forming organs and certain disorders involving the immune mechanism complicating pregnancy, third trimester; D68.61 Antiphospholipid syndrome; Z3A.35 35 weeks gestation of pregnancy; O26.23 Pregnancy care for patient with recurrent pregnancy loss, third trimester; Z79.01 Long term (current) use of anticoagulants; Z79.82 Long term (current) use of aspirin; O99.343 Other mental disorders complicating pregnancy, third trimester; F41.9 Anxiety disorder, unspecified; O98.513 Other viral diseases complicating pregnancy, third trimester; B00.9 Herpesviral infection, unspecified
CPT/HCPCS: 36415; 59025; 80053; 82570; 84156; 84550; 85027; 87635; 96365; 99215; A9270; J7120; J3475

== ENCOUNTER 2023-06-09 15:11 | Outpatient (CLI) | payer BC ==
[2023-06-09 16:03] LABS: BASOPHILS % (AUTO) 0.4 %; EOSINOPHILS # (AUTO) 0.1 10^3/uL (0.0-0.7); EOSINOPHILS % (AUTO) 1.3 %; HCT - HEMATOCRIT 38.6 % (37.0-47.0); HGB - HEMOGLOBIN 12.9 g/dL (12.0-16.0); LYMPHOCYTES # (AUTO) 1.7 10^3/uL (1.5-3.5); LYMPHOCYTES % (AUTO) 18.9 %; MEAN CORPUSCULAR HEMOGLOBIN 30.9 pg (27.0-31.0); MEAN CORPUSCULAR HGB CONC 33.4 g/dL (32.0-36.0); MEAN CORPUSCULAR VOLUME 92.3 fL (81.0-99.0); MEAN PLATELET VOLUME 13.3 fL (7.9-10.8); MONOCYTES # (AUTO) 0.6 10^3/uL (0.0-1.0); MONOCYTES % (AUTO) 7.2 %; NEUTROPHILS # (AUTO) 6.4 10^3/uL (1.5-6.6); NEUTROPHILS % (AUTO) 71.4 %; PLT - PLATELET COUNT 137 10^3/uL (130-450); RED BLOOD COUNT 4.18 10^6/uL (4.20-5.40); RED CELL DISTRIBUTION WIDTH 14.2 % (12.0-15.0); WHITE BLOOD COUNT 8.9 x10^3/uL (4.8-10.8)
[2023-06-09 16:22] LABS: ALBUMIN 3.4 g/dL (3.2-5.5); BILIRUBIN,TOTAL 0.2 mg/dL (0.2-1.0); CALCIUM 9.2 mg/dL (8.5-10.3); CREATININE 0.7 mg/dL (0.6-1.3); POTASSIUM 3.8 mmol/L (3.5-4.5); TOTAL PROTEIN 6.8 g/dL (6.4-8.9)
[2023-06-09 17:09] LABS: CREATININE,URINE 66.3 mg/dL; PROTEIN/CREATININE RATIO,URINE 0.1 (<=0.2)
--- NOTE | 2023-06-09 17:36 | Ultrasound Report ---
PROCEDURE: OB Biophysical Profile INDICATIONS: CHTN OUTSIDE/PRIOR DATING DATA: Last menstrual period (LMP): 09/28/2022. LMP-based estimated date of delivery (CARMELITA): 07/05/2023. First dating scan (date and location): 11/14/2022. Estimated date of delivery (CARMELITA) from first dating scan: 07/04/2023. The below data below was generated using the working CARMELITA of 07/05/2023 TECHNIQUE: Real-time scanning was performed of the fetus, with image documentation. Biophysical prof ile was also obtained. Endovaginal scanning: Not performed COMPARISON: 02/16/2023 FINDINGS: General: A single living intrauterine gestation is present. Presentation: Cephalic Placenta: Placental position is posterior, without previa. Amniotic fluid index: 12.9 cm, normal for gestational age. heart rate: 135 beats per minute. Maternal cervical canal: 4.23 cm long; normal length is 2.5 cm or more. Estimated gestational age from initial scan: 32 weeks, 3 days Biophysical profile: Tone: 2 points. Movement: 2 points. Respiration: 2 points. Largest pocket of fluid: 2 points. IMPRESSION: 1. Single live intrauterine gestation with fetus in cephalic presentation. heart rate is 135 bp m. Normal amount of amniotic fluid. MALLY equals 12.9 cm. 2. biophysical profile score is 8 out of 8. Reviewed by: Anthony Oseguera MD on 06/09/2023 5:35 PM PST Approved by: Anthony Oseguera MD on 06/09/2023 5:35 PM PST Station ID: [id number]
[2023-06-09 17:51] VITALS: BP 128/85
--- NOTE | 2023-06-09 20:34 | PROCEDURE REPORT ---
- HPI Diagnosis/Indication for NST: Gestational Hypertension Current EDU 07/05/23 Gestation 36 Weeks and 2 Days 1 Para 0 Vital Signs Temperature 98.4 F 06/09/23 15:19 Heart Rate 76 06/09/23 15:19 Respiratory Rate 17 06/09/23 15:19 Blood Pressure 143/82 H 06/09/23 15:19 Temperature 98.4 F 06/09/23 15:19 Heart Rate 90 06/09/23 15:56 Respiratory Rate 17 06/09/23 15:19 Blood Pressure 128/85 H 06/09/23 17:49 O2 Saturation If not protocol: Oxygen Flow, liters/minute - NST Procedure NST Procedure Start Date 06/09/23 Start Time 15:15 Stop Time 17:20 Patient States Movement Yes - Results and Plan Findings/Impression: 135 mod miguel + A cells no D cells reactive Plan: Pt with elevated BP x1 here -- known chronic HTN on 3 meds and allergic to labetalol checked PIH labs - all wnl and all subsequent BPs were wnl reviewed precautions with her and OK to D/C home 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 OK to D/C home with precautions.
== END 2023-06-09 17:30 | disposition home or self-care (01) ==
LOC: WFO 15:11 → FBP 15:13 → WFO 17:30
PROVIDERS: ATTEND Obstetrics & Gynecology
DX: O13.3 Gestational [pregnancy-induced] hypertension without significant proteinuria, third trimester (principal); Z3A.36 36 weeks gestation of pregnancy
CPT/HCPCS: 36415; 59025; 80053; 82570; 84156; 85025; 99215

== ENCOUNTER 2023-06-12 15:09 | Outpatient (CLI) | payer BC ==
[2023-06-12 15:31] VITALS: BP 147/91
--- NOTE | 2023-06-12 21:17 | PROCEDURE REPORT ---
- HPI Diagnosis/Indication for NST: Gestational Hypertension Current EDU 07/05/23 Gestation 36 Weeks and 5 Days 7 Para 0 Vital Signs Temperature 97.7 F 06/12/23 15:20 Heart Rate 72 06/12/23 15:20 Temperature 97.7 F 06/12/23 15:24 Heart Rate 72 06/12/23 15:24 Respiratory Rate Blood Pressure 147/91 H 06/12/23 15:24 O2 Saturation If not protocol: Oxygen Flow, liters/minute - NST Procedure NST Procedure Start Date 06/12/23 Start Time 15:16 Stop Time 15:42 Vibroacoustic Stimulation Used No Patient States Movement Yes tracing reviewed in real time. + acels. no decels. moderate variability. baseline aobut 135 - Results and Plan Findings/Impression: reactive nst Plan: induction Thursday or sooner if needed.
== END 2023-06-12 15:49 | disposition home or self-care (01) ==
LOC: WFO 15:09 → FBP 15:12 → WFO 15:49
PROVIDERS: ATTEND Obstetrics & Gynecology
DX: O13.3 Gestational [pregnancy-induced] hypertension without significant proteinuria, third trimester (principal); Z3A.36 36 weeks gestation of pregnancy
CPT/HCPCS: 59025